=== PATIENT | female | born 1995 | race Caucasian/White ===

== ENCOUNTER 2016-11-06 13:17 | Emergency (ER) | payer MEDICAID, OTHER ==
[~2016-11-06] VITALS: Ht 167.6 cm; Wt 113.4 kg
[2016-11-06 13:25] VITALS: BP 134/87
[2016-11-06] MEDS ORDERED: HYDROcodone-ACET 7.5/325MG TAB PO ONE (14:00)
[2016-11-06] MEDS ORDERED: LIDOCAINE 1% HCL (LOCAL ANESTH.) INJ 20ML MDV IN ONE (14:30)
== END 2016-11-06 15:29 | disposition home or self-care (01) ==
LOC: EDBD 13:17 → ER 13:22
DX: S81.811A Laceration without foreign body, right lower leg, initial encounter (principal); S20.02XA Contusion of left breast, initial encounter; S10.91XA Abrasion of unspecified part of neck, initial encounter; V49.9XXA Car occupant (driver) (passenger) injured in unspecified traffic accident, initial encounter; Y93.89 Activity, other specified; Y92.89 Other specified places as the place of occurrence of the external cause; Y99.8 Other external cause status
CPT/HCPCS: 12035; 73590; 99284; J2001

== ENCOUNTER 2016-11-08 11:55 | Emergency (ER) | payer MEDICAID ==
[~2016-11-08] VITALS: Ht 167.6 cm; Wt 113.4 kg
[2016-11-08 12:05] VITALS: BP 150/88
== END 2016-11-08 14:12 | disposition home or self-care (01) ==
LOC: ER 11:55
DX: S81.811D Laceration without foreign body, right lower leg, subsequent encounter (principal); X58.XXXD Exposure to other specified factors, subsequent encounter; Y99.8 Other external cause status; Y92.89 Other specified places as the place of occurrence of the external cause